=== PATIENT | male | born 1980 ===

== ENCOUNTER → 2021-10-29 | Emergency (ER) | payer OTHER ==
[~2021-10-29] VITALS: Ht 170.2 cm; Wt 90.7 kg
[~2021-10-29] MED LIST: ATORVASTATIN CA40 MG PO; BETAPACE120 MG; CAROSPIR25 MG/5 ML PO; CARVEDILOL12.5 M1 PO; CHILDREN'S ASPI81 MG; XARELTO20 M1 PO; ZESTRIL5 MG
== END | disposition home or self-care (01) ==
LOC: ER 18:18
DX: R00.2 Palpitations (principal); I50.9 Heart failure, unspecified; I25.10 Atherosclerotic heart disease of native coronary artery without angina pectoris; I25.2 Old myocardial infarction; Z88.6 Allergy status to analgesic agent